=== PATIENT | female | born 2005 | race Caucasian/White ===

== ENCOUNTER 2024-06-25 23:24 | Emergency (ER) | payer OTHER ==
[~2024-06-25] VITALS: Ht 175.3 cm; Wt 63.6 kg
[2024-06-25 23:30] VITALS: TEMP 98.4
[2024-06-26] MEDS ORDERED: NS 1,000 ML IV ONE (00:30)
[2024-06-26] MEDS ORDERED: droPERidol 2.5 MG/ML 2 ML VIAL IV ONE (00:30)
[2024-06-26 00:52] LABS: BASO % 0.6 % (0.0-2.0); EOS # 0.1 K/mm3 (0.0-0.7); GRAN # 2.8 K/mm3 (1.4-6.5); GRAN % 55.3 % (42.2-75.2); HEMATOCRIT 39.9 % (35.0-45.0); HEMOGLOBIN 13.2 g/dl (12.0-15.0); LYMPH # 1.5 K/mm3 (1.2-3.4); LYMPH % 28.7 % (20.0-51.0); MEAN CELL VOLUME 99 fl (80.0-95.0); MEAN CORPUSCULAR HEMOGLOBIN 33 pg (26-32); MEAN CORPUSCULAR HGB CONC 33 g/dl (33.0-37.0); MEAN PLATELET VOLUME 10.3 fl (7.4-10.4); MONO # 0.7 K/mm3 (0.1-0.6); MONO % 13.2 % (1.7-9.3); PLATELET COUNT 177 K/mm3 (130-400); RED BLOOD COUNT 4.04 M/mm3 (4.10-5.30); REDCELL DISTRIBUTION WIDTH-CV 11.7 % (11.5-14.5)
[2024-06-26 01:05] LABS: PH 5.5 (5.0-8.5); URINE APPEARANCE CLEAR (CLEAR/HAZY); URINE BLOOD NEGATIVE (NEGATIVE); URINE COLOR YELLOW (YELLOW); URINE GLUCOSE NEGATIVE (NEGATIVE); URINE KETONE 1+ (NEGATIVE); URINE NITRATE NEGATIVE (NEGATIVE); URINE PROTEIN(semi-quant) NEGATIVE (NEGATIVE)
[2024-06-26 01:10] LABS: COLLECTION METHOD CLEAN CATCH
[2024-06-26 01:27] LABS: ALBUMIN 3.8 g/dL (3.5-5.0); BILIRUBIN,TOTAL 0.6 mg/dL (0.2-1.2); CALCIUM 8.9 mg/dL (8.4-10.2); CREATININE, serum 0.76 mg/dL (0.57-1.11); POTASSIUM 3.7 mEq/L (3.5-4.5); TOTAL PROTEIN 6.4 g/dl (6.2-8.1)
[2024-06-26] MEDS ORDERED: diphenhydrAMINE 50 MG/ML 1 ML VIAL IV ONE (01:30)
[2024-06-26] MEDS ORDERED: LORazepam 2 MG/ML 1 ML VIAL IV ONE (02:00)
[2024-06-26 03:33] VITALS: BP 134/78; PULSE 78
== END 2024-06-26 03:43 | disposition home or self-care (01) ==
LOC: COL.ER 23:24
PROVIDERS: Nurse Practitioner
DX: R11.2 Nausea with vomiting, unspecified (principal); R19.7 Diarrhea, unspecified
CPT/HCPCS: J1200; J1790; J2060; J7030

== ENCOUNTER 2024-09-08 07:53 | Outpatient (CLI) | payer OTHER ==
[~2024-09-08] VITALS: Ht 175.3 cm; Wt 68.6 kg
[2024-09-08 08:20] VITALS: BP 109/78; PULSE 86; TEMP 98
[2024-09-08] MEDS ORDERED: ATARAX 10MG10 MG/TAB PO (08:47)
[2024-09-08] MEDS ORDERED: PRISTIQ 50 MG T50 MG PO (08:47)
[2024-09-08] MEDS ORDERED: PROAIR HFA0.09 MG/AC IH (08:48)
[2024-09-08 10:15] VITALS: BP 117/75; PULSE 60
--- NOTE | 2024-09-08 10:19 | NUR ---
PATIENT TOLERATED PROCEDURE WELL, REPORTS SYMPTOMS HAVE RESOLVED. PATIENT TRANSPORTED TO [place] [id number], VITAL SIGNS TAKEN ON ARRIVAL, VSS. TRANSFER OF CARE REPORT TO ORQUIDE[facility]LLER.
[2024-09-08 10:30] VITALS: BP 114/85; PULSE 60
[2024-09-08 10:45] VITALS: BP 111/75; PULSE 64
[2024-09-08] MEDS ORDERED: ZEBETA 5MG5 MG PO (10:45)
[2024-09-08] MEDS ORDERED: NS 500 ML IV ONE (10:45)
[2024-09-08 11:00] VITALS: BP 111/67; PULSE 68
--- NOTE | 2024-09-08 11:54 | NUR ---
PT TOLERATED RECOVERY PERIOD WELL. VS REMAINED WITHIN NORMAL LIMITS. PT REMAINED FREE FROM A SYNCOPAL EPISODE THROUGHOUT RECOVERY. PT AMBULATED INDEPENDENTLY TO [facility] UPON DISCHARGE. IV DISCONTINUED. PT VERBALIZED UNDERSTANDING OF DISCHARGE INSTRUCTIONS.
== END 2024-09-08 11:56 | disposition home or self-care (01) ==
LOC: COL.CAR 07:53
DX: R55 Syncope and collapse (principal); R00.0 Tachycardia, unspecified; Z86.16 Personal history of COVID-19
CPT/HCPCS: J7040